=== PATIENT | female | born 1965 | race Caucasian/White ===

== ENCOUNTER 2016-05-11 07:38 | Emergency (ER) | payer OTHER ==
[~2016-05-11] VITALS: Ht 149.9 cm; Wt 50.8 kg
[~2016-05-11 07:38] MED LIST: AMOXICILLIN500 M3 PO; DELTASONE20 MG PO; magic mouth wash PO
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
--- NOTE | 2016-05-11 08:48 | CT SCAN REPORT ---
EXAMINATION: CT HEAD W/O IV CONTRAST CT CERVICAL SPINE W/O IV CONTRAST CLINICAL INFORMATION: Status post fall down 13 stairs. Evaluate for bleed and cervical spine fracture. COMPARISON: None TECHNIQUE: Head - Contiguous axial imaging of the head was performed from the skull base to the vertex without the administration of intravenous contrast, and axial images reconstructed at 0.625 mm, 2.5 and 5 mm slice thickness. Cervical spine - Volumetric, helical CT acquisition of the cervical spine was obtained without contrast; in addition to the standard set of axial images, multiplanar reformatted images were provided in the coronal and sagittal imaging planes. DLP: 797 mGy-cm (total) FINDINGS: HEAD: The ventricles have normal size and configuration. The sulci and basilar cisterns are unremarkable. There are no extra-axial fluid collections. There is atherosclerotic calcification of vertebral and cavernous carotid arteries. No evidence of acute intracranial hemorrhage, territorial infarction, abnormal mass effect or midline shift. [place] to white matter differentiation is well preserved. The calvarium is intact and the mastoid air cells and middle ear cavities are clear. Temporomandibular joints are normal. There are scattered areas of mucosal thickening of bilateral ethmoid air cells and along the left frontal sinus drainage pathway. The visualized orbits/globes are unremarkable. CERVICAL SPINE: The cervical spine is straightened with lack of lordotic curvature. No acute findings at the craniocervical junction. The occipital condyles, atlas, axis and atlantoaxial articulation are intact. The vertebral body heights and alignment are maintained. No evidence of acute fracture in the anterior or posterior elements. There is no prevertebral soft tissue swelling. The disc spaces are preserved with exception of mild disc space narrowing and traction osteophyte formation at C5-C6. The facet joints and uncovertebral joints are unremarkable. There is no evidence of osseous stenosis of the central spinal canal or neural foramina. No evidence of epidural hematoma. No fluid collections in the neck. Mild symmetric subpleural scarring is seen at the visualized lung apices IMPRESSION: 1. No acute intracranial pathology. 2. No acute fracture or malalignment in the cervical spine.
[2016-05-11] MEDS ORDERED: CYCLOBENZAPRINE10 M1 PO (08:53)
[2016-05-11] MEDS ORDERED: IBUPROFEN600 M1 PO (08:53)
[2016-05-11] MEDS ORDERED: TRAMADOL HCL50 M1 PO (08:54)
[2016-05-11 08:59] VITALS: BP 129/78
== END 2016-05-11 09:02 ==
LOC: ERH 07:38
DX: S09.90XA Unspecified injury of head, initial encounter (principal); S13.9XXA Sprain of joints and ligaments of unspecified parts of neck, initial encounter; S43.402A Unspecified sprain of left shoulder joint, initial encounter; W10.9XXA Fall (on) (from) unspecified stairs and steps, initial encounter